=== PATIENT | female | born 1990 | race Caucasian/White ===

== ENCOUNTER 2021-03-04 19:16 | Inpatient (IN) | payer BC ==
[~2021-03-04] VITALS: Ht 167.6 cm; Wt 95.0 kg
[2021-03-04] MEDS ORDERED: MISOPROSTOL 200 MCG TABLET ONE (19:48)
[2021-03-04] MEDS ORDERED: OXYTOCIN 30U/ 0.9% NaCL 500ML 500 ML ONE (19:48)
[2021-03-04] MEDS ORDERED: LIDOCAINE 1%, 20ML ONE (19:48)
[2021-03-04] MEDS ORDERED: NEWBORN KIT ONE (19:48)
[2021-03-04] MEDS ORDERED: FENTANYL PF 100 MCG/2ML ONE (19:58)
[2021-03-04] MEDS ORDERED: LACTATED RINGERS 1,000 ML IV SCH (20:00)
[2021-03-04] MEDS ORDERED: ONDANSETRON 2MG/ML, 2ML IVPush PRN (20:00)
[2021-03-04] MEDS ORDERED: SODIUM CITRATE/CITRIC ACID 30 ML UDC PO PRN (20:00)
[2021-03-04] MEDS: FENTANYL PF 100 MCG/2ML IVPush PRN ×2 (20:00→21:40)
[2021-03-04] MEDS ORDERED: OXYTOCIN 30U/ 0.9% NaCL 500ML 500 ML IV PRN (20:00)
[2021-03-04] MEDS ORDERED: PENICILLIN GK 2,500,000 UNITS in DEXTROSE 5% 100 ML IVPB SCH (20:00)
[2021-03-04] MEDS ORDERED: FENTANYL PF 100 MCG/2ML IV PRN (20:00)
[2021-03-04] MEDS ORDERED: OXYTOCIN 30U/ 0.9% NaCL 500ML 500 ML IV ONE (20:00)
[2021-03-04] MEDS ORDERED: PENICILLIN GK 5,000,000 UNITS in DEXTROSE 5% 100 ML IVPB ONE (20:00)
[2021-03-04] MEDS ORDERED: TERBUTALINE 1 MG/ML, 1ML IVPush PRN (20:00)
[2021-03-04] MEDS ORDERED: TERBUTALINE 1 MG/ML, 1ML SQ PRN (20:00)
[2021-03-04] MEDS ORDERED: D5%-LACTATED RINGERS 1,000 ML IV SCH (20:00)
[2021-03-04] MEDS ORDERED: METOCLOPRAMIDE 5 MG/ML, 2ML IVPush PRN (20:00)
[2021-03-04 20:20] VITALS: BP 120/79
[2021-03-04 20:26] LABS: MEAN CORPUSCULAR HEMOGLOBIN 31.9 pg (27.0-34.8); MEAN CORPUSCULAR HGB CONC 33.9 g/dL (32.4-35.8); MEAN PLATELET VOLUME 7.1 fL (7.4-10.4); PLATELET COUNT 319 x10^3/uL (130-400); RED CELL DISTRIBUTION WIDTH 13.1 % (9.6-15.2)
[2021-03-04 21:08] LABS: BAND#(MANUAL) 1.68 x10^3/uL; BANDS%(MANUAL) 9 % (0-7); BASOS#(MANUAL) 0.19 x10^3/uL (0-0.1); BASOS% (MANUAL) 1 % (0-1); EOS#(MANUAL) 0.19 x10^3/uL (0.0-0.4); EOS% (MANUAL) 1 % (1-7); LYMPH#(MANUAL) 0.94 x10^3/uL (1-3.4); LYMPHS% (MANUAL) 5 % (22-44); MONOS#(MANUAL) 1.12 x10^3/uL (0.3-2.7); MONOS% (MANUAL) 6 % (2-9); SEG#(MANUAL) 14.59 x10^3/uL (1.8-6.8); SEGS% (MANUAL) 78 % (42-75)
[2021-03-04 21:09] LABS: <PLATELET ESTIMATE> ADEQUATE; PMNS WITH VACUOLES 1+
[2021-03-04 21:10] LABS: ANISOCYTOSIS 1+; LARGE PLATELETS 1+; SMALL PLATELETS 1+
[2021-03-04] MEDS ORDERED: MISOPROSTOL 200 MCG TABLET PR PRN (23:30)
[2021-03-04] MEDS ORDERED: OXYTOCIN 30U/ 0.9% NaCL 500ML 500 ML IV SCH (23:30)
[2021-03-04] MEDS ORDERED: RHOGAM FROM BLOOD BANK 1 NOTE EA IM/IV ONE (23:30)
[2021-03-04] MEDS ORDERED: ONDANSETRON 2MG/ML, 2ML IV PRN (23:30)
[2021-03-04] MEDS ORDERED: ACETAMINOPHEN 325 MG TABLET PO PRN (23:30)
[2021-03-04] MEDS ORDERED: SIMETHICONE 80 MG CHEW TAB PO PRN (23:30)
[2021-03-05] MEDS: IBUPROFEN 600 MG TABLET PO PRN ×4 (01:00→20:15)
[2021-03-05 01:40] VITALS: BP 109/71
[2021-03-05 05:30] VITALS: BP 110/69
[2021-03-05 07:26] LABS: BASOPHILS % (AUTO) 1 % (0-1); EOSINOPHILS % (AUTO) 1 % (1-7); LYMPHOCYTES % (AUTO) 8 % (22-44); MEAN CORPUSCULAR HEMOGLOBIN 32.2 pg (27.0-34.8); MEAN CORPUSCULAR HGB CONC 34.1 g/dL (32.4-35.8); MEAN PLATELET VOLUME 6.7 fL (7.4-10.4); MONOCYTES % (AUTO) 9 % (2-9); NEUTROPHILS % (AUTO) 82 % (42-75); PLATELET COUNT 319 x10^3/uL (130-400); RED BLOOD COUNT 3.79 x10^6/uL (3.82-5.3); RED CELL DISTRIBUTION WIDTH 13.1 % (9.6-15.2)
[2021-03-05 07:53] VITALS: BP 115/77
[2021-03-05] MEDS: PRENATAL VIT/IRON/FA 1 EACH TABLET PO SCH (08:01)
[2021-03-05] MEDS: DOCUSATE 100 MG CAPSULE PO PRN ×2 (08:01→20:16)
[2021-03-05 12:00] VITALS: BP 110/74
[2021-03-05 19:30] VITALS: BP 112/74
[2021-03-05] MEDS: OXYcodone/APAP 5/325MG TABLET PO PRN (20:16)
[2021-03-06] MEDS: IBUPROFEN 600 MG TABLET PO PRN ×2 (04:15→10:28)
[2021-03-06] MEDS: OXYcodone/APAP 5/325MG TABLET PO PRN (06:48)
[2021-03-06 07:40] VITALS: BP 112/68
[2021-03-06] MEDS: PRENATAL VIT/IRON/FA 1 EACH TABLET PO SCH (10:28)
[2021-03-06] MEDS ORDERED: IBUP-1222 PO ×2 (13:59)
== END 2021-03-06 14:35 | disposition home or self-care (01) | DRG 807 ==
LOC: LDOP 19:16 → LDIP 19:55 → 2NW 03-05 01:21
PROVIDERS: ADMIT Obstetrics & Gynecology; ATTEND Obstetrics & Gynecology
PROC: 10E0XZZ Delivery of Products of Conception, External Approach (ICD-10-PCS; principal; 2021-03-04)
DX: O99.824 Streptococcus B carrier state complicating childbirth (principal); Z37.0 Single live birth; Z20.822 Contact with and (suspected) exposure to COVID-19; Z3A.40 40 weeks gestation of pregnancy
CPT/HCPCS: 36415; 85025; 86592; 86850; 86900; 87635; G0378; J2540; J3010; J2590; J7120